=== PATIENT | female | born 1955 | race Caucasian/White ===

== ENCOUNTER 2020-01-02 08:59 | Outpatient (CLI) | payer OTHER, SELFPAY ==
--- NOTE | ~2020-01-02 | PE_ITS ---
EXAMINATION: PET skull to mid thigh DATE: 01/02/2020 11:13 INDICATION: Lung nodule. TECHNIQUE: Blood glucose level was 86 mg/dL. 9.608 mCi of 18-fluorodeoxyglucose (18-FDG) was administ ered i.v. Low dose computed tomography (CT) images were acquired from the base of the brain to the pr oximal thighs for attenuation correction and anatomic localization. Automated exposure control was em ployed. Dose-length product (DLP) was 541 mGy-cm. Positron emission tomography (PET) images were acqu ired in the same distribution. COMPARISON: None FINDINGS: Head/neck: There is increased activity in the oral cavity, oropharynx, epiglottis, and paraspinal mus cles without CT correlate, likely physiologic. There are no pathologically enlarged lymph nodes. Chest: There are airspace opacities with air bronchograms in right upper lobe measuring 2.9 x 1.9 cm with maximum SUV of 6.6. A calcified right lung nodule and calcified right hilar lymph nodes are cons istent with old granulomatous disease. No pleural effusion. The heart size is normal. There are coron valentine artery calcifications. No pericardial effusion. Abdomen/pelvis/proximal thighs: Calcifications in the liver consistent with old granulomatous disease . The gallbladder, spleen, pancreas, adrenal glands, and kidneys are normal. There are no dilated loo ps of bowel. There are no pathologically enlarged lymph nodes. There is no free intraperitoneal fluid . There is severe lower lumbar spondylosis. IMPRESSION: 1. Airspace opacity with air bronchograms in right lung upper lobe with increased activity, which may be pneumonia or low-grade malignancy. Comparison with the outside chest CT is recommended. If the fi nding has not improved from prior imaging, consider CT-guided biopsy. Reviewed, dictated and finalized at location A. RAW STOCK BLOWER FEEDER IMPRESSION: 1. Airspace opacity with air bronchograms in right lung upper lobe with increas ed activity, which may be pneumonia or low-grade malignancy. Comparison with th e outside chest CT is recommended. If the finding has not improved from prior i maging, consider CT-guided biopsy.
[2020-01-02 09:31] LABS: Glucose Point of Care 86 (65-105)
== END 2020-01-02 09:00 | disposition home or self-care (01) ==
PROVIDERS: PCP Internal Medicine Infectious Disease; Visit Provider Internal Medicine Infectious Disease
DX: R91.1 Solitary pulmonary nodule (principal)
CPT/HCPCS: 78815; A9552

== ENCOUNTER 2021-11-09 09:33 | Outpatient (CLI) | payer OTHER, SELFPAY ==
--- NOTE | ~2021-11-09 | PE_ITS ---
EXAMINATION: PET skull to mid thigh DATE: 11/09/2021 11:35 INDICATION: Abnormal findings on diagnostic imaging. TECHNIQUE: Blood glucose level was 84 mg/dL. 8.667 mCi of 18-fluorodeoxyglucose (18-FDG) was administ ered i.v. Low dose computed tomography (CT) images were acquired from the base of the brain to the pr oximal thighs for attenuation correction and anatomic localization. Automated exposure control was em ployed. Dose-length product (DLP) was 532 mGy-cm. Positron emission tomography (PET) images were acqu ired in the same distribution. COMPARISON: PET CT 01/02/2020 FINDINGS: Head/neck: There is increased activity in the oral cavity and oropharynx without abnormal CT correlat e, likely physiologic. There are no pathologically enlarged lymph nodes. Chest: A calcified right lung nodule and calcified right hilar and mediastinal lymph nodes are consis tent with old granulomatous disease. There is a 3.5 x 2.1 cm mass involving right lung middle lobe an d upper lobe with maximum SUV of 12.2, increased from 2.9 x 1.7 cm on 01/02/20. There is mild atelectas is bilaterally. No pleural effusion. The heart size is normal. There are coronary artery calcificatio ns. No pericardial effusion. There are old healed left fractures. Abdomen/pelvis/proximal thighs: Calcifications in the liver is consistent with old granulomatous dise ase. The spleen, gallbladder, pancreas, adrenal glands, and kidneys are normal. There is diverticulos is of the colon without evidence of diverticulitis. There are no dilated loops of bowel. The appendix is normal. There are no pathologically enlarged lymph nodes. There is no free intraperitoneal fluid. There is focal increased activity in the sacrum on the left. There is a 10 mm lytic lesion in right sacral ala with increased activity. IMPRESSION: 1. Worsened mass with increased activity in right lung suspicious for primary bronchogenic carcinoma. 2. Two foci of increased activity in the sacrum, one of which is lytic by CT, suspicious for metastat ic disease. CT-guided biopsy of the right sacral lesion is recommended. Reviewed, dictated and finalized at location B. RNET DEVELOPER IMPRESSION: 1. Worsened mass with increased activity in right lung suspicious for primary b ronchogenic carcinoma. 2. Two foci of increased activity in the sacrum, one of which is lytic by CT, s uspicious for metastatic disease. CT-guided biopsy of the right sacral lesion i s recommended.
[2021-11-09 09:58] LABS: Glucose Point of Care 84 mg/dl (65-105)
== END 2021-11-09 09:34 | disposition home or self-care (01) ==
LOC: ANHIMG 09:35
PROVIDERS: PCP Internal Medicine Infectious Disease; Visit Provider Internal Medicine Infectious Disease
DX: R93.89 Abnormal findings on diagnostic imaging of other specified body structures (principal)
CPT/HCPCS: 78815; A9552

== ENCOUNTER 2021-11-29 05:50 | Outpatient (CLI) | payer OTHER, SELFPAY ==
[2021-11-23 08:45] VITALS: BMI 30.2
--- NOTE | 2021-11-23 09:16 | PC.NURSE ---
Report to the Outpatient Waiting Room, entrance under the green pavilion located off [facility], at time ___9:00AM____ on date __11/29/21 . OR Time: ___11:00AM . - You and your visitor will be asked a series of questions to screen for COVID 19 for your protection. - A mask is required within the hospital. - NO visitor is allowed at this time. Preoperative COVID Testing Requirements: No COVID Test needed if: (proof is required; if not received patient will have Rapid Test prior to entry) - Patient has received COVID Vaccine at least 14 days prior to procedure date or - Patient has positive COVID test result within last 90 days of surgery date. COVID Test needed if above criteria is not met If not COVID vaccinated a COVID test must be conducted within 72 hours of surgery and patient is asked to isolate self from time of testing until procedure. You will go to the [facility] for your COVID testing. The [facility] is located at the corner of [address] [facility]. You will only be called if COVID results are positive and your surgeon may reschedule your elective surgery date. Patients may have clear liquids (water, carbonated beverages, clear teas, apple juice) until 3 hours prior to surgery with a maximum of 20 ounces. - No food from midnight until time of surgery NOTHING BY MOUTH 6 HOURS PRIOR TO PROCEDURE - Infants may have breast milk until 4 hours before surgery, formula 6 hours prior to surgery. - Children will be allowed to drink immediately following surgery. If applicable, please bring a bottle or sippy cup to assist with drinking. Juice, water, soda, and popsicles are readily available. For infants on formula, please bring formula the day of surgery. Pacifiers are allowed. Take the following medications with a SIP of water the morning of surgery: ____AM MEDS Medications to discontinue per physician NONE Date to take last dose Please no make-up, nail nigerian, hairspray, perfume, deodorant, or body powder the day of surgery. No jewelry (including any body piercings) or valuables the day of surgery, leave them at home. Please take a shower or bath the night before, or the morning of, surgery with an antibacterial soap. Wear comfortable, loose fitting clothing. Children are encouraged to wear pajamas. - Jewelry must be removed prior to entering the operating room. Rings and piercings that are not removed may be cut off. - The hospital will not accept responsibility for valuables. - Please leave all valuables, including medications, at home the day of surgery. If you are going home after surgery, a licensed mechanic driver must drive you home. - NO public transportation without another adult. - We recommend that an adult stay with you for 24 hours following discharge. - We also recommend that you do not drive, make important decision, drink alcoholic beverages, or take any drugs that were not prescribed by your health care provider for at least 24 hours after your discharge time. For Pediatric surgeries, we recommend two adults accompany the child home (only one inside the building at this time). Follow any additional instructions given to you from your surgeon. Telephone instructions given to __PATIENT and asked if any additional questions and then verbalized understanding. Patient advised to call surgeon office or pre surgery nurse liaison [phone] if any additional questions.
--- NOTE | ~2021-11-29 | CT_ITS ---
EXAMINATION: CT biopsy bone deep DATE: 11/29/2021 11:30 INDICATION: Sacral mass. TECHNIQUE: The procedure including the risks, benefits, and alternatives was discussed with the patie nt. Risks discussed included bleeding and infection. The patient verbalized understanding of the risk s and agreed to proceed. The skin overlying the sacrum was prepped and draped in usual sterile fashi on. Anesthetic was administered with 1% lidocaine subcutaneously. A 16 gauge outer needle was advan rani under CT guidance to the sacrum. An 18 gauge core biopsy needle was then used to obtain several c ore biopsy specimens. The mA was adjusted according to patient size. Iterative reconstruction technLayerGloss ue was employed. The dose-length product was 124.69 mGy-cm. The needle was removed and the entry site was cleaned and dressed. There were no immediate complications. FINDINGS: CT images demonstrate the outer needle tip adjacent to a 10 mm lytic lesion of the sacrum o n the right. IMPRESSION: 1. CT-guided core needle biopsy of a lytic lesion in the sacrum. Reviewed, dictated and finalized at location A. US TAKER
[2021-11-29 11:26] VITALS: BP 125/79; PULSE 82; RESP 18; O2SAT 98
[2021-11-29 11:28] VITALS: BP 126/84; PULSE 76; RESP 18; O2SAT 99
== END 2021-11-29 05:51 | disposition home or self-care (01) ==
PROVIDERS: PCP Internal Medicine Infectious Disease; Visit Provider Internal Medicine Critical Care Medicine
DX: C79.51 Secondary malignant neoplasm of bone (principal)
CPT/HCPCS: 20225; 77012; 88307; 88311; 88342

== ENCOUNTER 2021-12-08 12:41 | Outpatient (CLI) | payer OTHER, SELFPAY ==
--- NOTE | 2021-12-08 16:06 | WPDSIXMINUTE ---
Six Minute Walk Procedure Procedure Performed Pulmonary Stress Test (6 min walk) Six Minute Walk This is a 6 minute walk test. The test was performed and interpreted in accordance with the 2014 ERS/ATS task force guidelines. Findings: The patient's resting room air oxygen saturation measured by pulse oximetry was 95% and heart rate was 71 bpm. Patient ambulated for 346 meters and oxygen saturation remained 93 to 97%. Heart rate at the end of the study was 113 bpm. The patient did not qualify for supplemental oxygen at rest or with ambulation. There are no prior studies for comparison.
--- NOTE | 2021-12-08 16:06 | WPDPFTINT ---
PFT Procedure Performed PFT Procedure Performed Spirometry with Pre/Post Bronchodilator Plethysmography (Lung Vol) Diffusing Cap (DLCO) Flow Vol Loop PFT Interpretation This is a pulmonary function test with pre and post-bronchodilator spirometry, plethysmography and diffusing capacity. The test was performed and results interpreted in accordance with the 2019 and 2005 ATS/ERS Task Force guidelines respectively using the Global Lung Function Initiative-2012 reference equations. Patient demonstrated good effort and cooperation. Reproducibility criteria were met. The quality of the pre bronchodilator spirometry maneuver was Grade A and post bronchodilator spirometry maneuver was Grade A. Findings: Spirometry: The contour the inspiratory and expiratory flow tracing are normal. The pre bronchodilator FVC is 2.88 L, 106% predicted. The pre bronchodilator FEV1 is 2.45 L, 115% predicted. The FEV1: FVC ratio was 85%. The post bronchodilator FVC is 2.88 L, representing no change. The post bronchodilator FEV1 is 2.41 L, representing a 1% decrease. The post bronchodilator FEV1: FVC ratio is 84%. Plethysmography: The total lung capacity 5.06 L, 107% predicted. Functional residual capacity is 2.56 L, 96% predicted. The residual volume is 2.17 L, 108% predicted. Diffusing capacity: The diffusion capacity unadjusted for hemoglobin is 15.9, 79% predicted. The diffusing capacity adjusted for alveolar volume is 4.32, 98% predicted. Impression: The spirometry is normal without evidence of an obstructive abnormality. There is no significant improvement after inhaling a single dose of albuterol. The lung volumes are normal. The diffusing capacity is normal. There are no prior studies for comparison
== END 2021-12-08 12:42 | disposition home or self-care (01) ==
LOC: ANHPFT 12:43
PROVIDERS: PCP Internal Medicine Infectious Disease; Visit Provider Internal Medicine Critical Care Medicine
DX: R91.8 Other nonspecific abnormal finding of lung field (principal)
CPT/HCPCS: 94060; 94618; 94726; 94729